=== PATIENT | female | born 1990 | race Caucasian/White ===

== ENCOUNTER 2018-08-16 21:53 | Emergency (ER) | payer MEDICAID, OTHER ==
[~2018-08-16] VITALS: Ht 165.1 cm; Wt 63.5 kg
[2018-08-16] MEDS ORDERED: XANAX0.5 MG ORAL (21:55)
[2018-08-16] MEDS ORDERED: HUMALOG100 UNIT/4 SUBQ (21:55)
[2018-08-16] MEDS ORDERED: SERTRALINE HCL25 MG ORAL (21:55)
--- NOTE | 2018-08-16 21:55 | NUR ---
ED Nurse Note: pt came with ra68 due hypoglycemia. per pt she was walking after work and felt dizzy. bed side bs is 225
[2018-08-16 21:56] VITALS: BP 93/57
--- NOTE | 2018-08-16 21:56 | NUR ---
ED Nurse Note: pt is aox4 shows no signs of confusion or loss oflevel of consciuosnes. pt is calm cooperative. pt was given a meal and juice
--- NOTE | 2018-08-16 21:58 | Emergency Room Report ---
History of Present Illness General Chief Complaint: General Complaint Source: Patient Present Illness HPI Is a 28-year-old female with history of insulin-dependent diabetes. She presents with chief complaint of hypoglycemia. She took her insulin today and said that she ate normally. She met her friend at a bar and had some drinks. She was on the street and start feeling abnormal. She flagged down a chief of police. She was acting erratically so they called EMS. Her blood sugar was in the 20s. They gave her an amp of the 50 and she felt better now. No nausea no vomiting. This is a first-time this happen to her. Denies any other complaint. No history of DKA. Cable better now. Allergies: Coded Allergies: No Known Allergies (Unverified , 08/16/18) Patient History Past Medical History: see triage record, old chart reviewed, DM Past Surgical History: other Pertinent Family History: none Social History: Reports: alcohol use - Social Last Menstrual Period: 07/21/18 Now: No Immunizations: other Reviewed Nursing Documentation: PMH: Agreed; PSxH: Agreed Nursing Documentation-PMH Hx Diabetes: Yes - type 1 Review of Systems Eye: Denies: eye pain, blurred vision ENT: Denies: ear pain, nose congestion, throat swelling Respiratory: Denies: cough, shortness of breath Cardiovascular: Denies: chest pain, palpitations Gastrointestinal: Denies: abdominal pain, diarrhea, nausea, vomiting Musculoskeletal: Denies: back pain, joint pain Skin: Denies: rash Neurological: Denies: headache, numbness Endocrine: Denies: increased thirst, increased urine Hematologic/Lymphatic: Denies: easy bruising All Other Systems: negative except mentioned in HPI Physical Exam Vital Signs Date Time Temp Pulse Resp B/P (MAP) Pulse Ox O2 Delivery O2 Flow Rate FiO2 08/16/18 21:48 98.2 73 16 93/57 97 Room Air vitals unremarkable Sp02 EP Interpretation: reviewed, normal General Appearance: well appearing, no apparent distress, alert Head: normocephalic, atraumatic Eyes: bilateral eye PERRL, bilateral eye EOMI ENT: hearing grossly normal, normal pharynx Neck: full range of motion, supple, no meningismus Respiratory: chest non-tender, lungs clear, normal breath sounds Cardiovascular #1: regular rate, rhythm, no murmur Gastrointestinal: normal bowel sounds, non tender, no mass, no organomegaly, no bruit, non-distended Musculoskeletal: back normal, gait/station normal, normal range of motion Psychiatric: mood/affect normal Skin: warm/dry Medical Decision Making Diagnostic Impression: Primary Impression: Hypoglycemia due to type 1 diabetes mellitus ER Course Patient with hypoglycemia. Patient said here and will recheck blood sugar in an hour. If stable, will discharge home. Last Vital Signs Date Time Temp Pulse Resp B/P (MAP) Pulse Ox O2 Delivery O2 Flow Rate FiO2 08/16/18 21:48 98.2 73 16 93/57 97 Room Air Status: improved Disposition: HOME, SELF-CARE Condition: Stable Additional Instructions: Take your insulin as directed. Eat regularly. Check your sugar regularly. Follow-up with your doctor in 7 days. Return if worse. Rush Goodwin MD Aug 16, 2018 21:58
--- NOTE | 2018-08-16 23:15 | NUR ---
ER DISCHARGE NOTE: Patient is cleared to be discharged per ERMD, pt is aox4, on room air, with stable vital signs. pt was given dc instructions, pt was able to verbalize understanding, pt id band and iv site removed without complications. pt is able to ambulate with steady gait. pt took all belongings.
[2018-08-16 23:16] VITALS: BP 93/57
== END 2018-08-16 23:15 | disposition home or self-care (01) ==
LOC: EDBD 21:53 → EMR 22:04
DX: E10.649 Type 1 diabetes mellitus with hypoglycemia without coma (principal); Z79.4 Long term (current) use of insulin
CPT/HCPCS: 82962; 99282